=== PATIENT | female | born 1955 | race Caucasian/White ===

== ENCOUNTER 2022-01-19 07:43 | Day surgery (SDC) | payer OTHER, BC ==
[~2022-01-19] VITALS: Ht 160 cm; Wt 68.9 kg
[2022-01-19] MEDS ORDERED: EUTHYROX50 MC1 PO (08:20)
== END 2022-01-19 09:57 | disposition home or self-care (01) ==
LOC: ORSCSDS 07:43
PROVIDERS: Internal Medicine Gastroenterology
PROC: 0DJD8ZZ Inspection of Lower Intestinal Tract, Via Natural or Artificial Opening Endoscopic (ICD-10-PCS; principal; 2022-01-19 09:00)
DX: Z12.11 Encounter for screening for malignant neoplasm of colon (principal); K57.30 Diverticulosis of large intestine without perforation or abscess without bleeding; Z79.899 Other long term (current) drug therapy
CPT/HCPCS: J2704; J7120

== ENCOUNTER → 2022-04-21 | Outpatient (CLI) | payer OTHER, BC ==
[~2022-04-21] MED LIST: EUTHYROX50 MC1 PO
== END | disposition home or self-care (01) ==
LOC: PLD 15:00 → LAB SHORT 15:00
DX: D48.5 Neoplasm of uncertain behavior of skin (principal)
CPT/HCPCS: 88305